=== PATIENT | male | born 1955 | race Caucasian/White ===

== ENCOUNTER 2024-01-31 19:31 | Emergency (ER) | payer OTHER, SELFPAY ==
[2024-01-31 19:38] VITALS: PULSE 85
[2024-01-31 19:41] VITALS: BP 146/80; PULSE 83; TEMP 37.2; O2SAT 98; BMI 29.2
--- NOTE | 2024-01-31 19:42 | XR_ITS ---
The [address] [address] Patient Name: ELIUD ANGEL MRN: [id number] date: 1955 Sex: M Assigned Patient Location: ED.MAIN Current Patient Location: ER Accession/Order Number: [id number] Exam Date: 01/31/2024 20:05 Report Date: 01/31/2024 20:47 At the request of: MARTHA MARKER Procedure: XR chest 1V EXAM: XR chest 1V HISTORY: Chest pain, shortness of breath COMPARISON: 07/12/2020. TECHNIQUE: AP upright chest x-ray FINDINGS: Lungs are clear, no infiltrate or edema. Normal heart size for technique. No pleural effusion or pneumothorax XR/XR chest 1V IMPRESSION: Negative chest x-ray, no acute findings. Electronically authenticated by: YI GOLDEN Date: 01/31/2024 20:47
--- NOTE | 2024-01-31 19:42 | ECG_ITS ---
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
--- NOTE | 2024-01-31 19:43 | ED_ITS ---
HPI - Chest Pain General Chief Complaint: Chest Pain Stated Complaint: chest pain Time Seen by Provider: 01/31/24 19:34 History of Present Illness HPI narrative: This 68-year-old male with a history of chronic kidney disease and diabetes who is a non-smoker presents for evaluation of intermittent episodes of chest discomfort that radiates into his back associated with exertional shortness of breath and feeling like his heart is out of rhythm. He does not have a history of atrial fibrillation. He has not a smoker. He does not have a history of any cardiac disease that he is aware of. He does not currently see a services host. He states his symptoms started over the weekend, 4 to 5 days ago and have been intermittent. He denies any pain at this time but states on the way to the emergency department he had palpitations. He has not had any dizziness syncope or diaphoresis. He has no abdominal pain. His baseline creatinine according to the paperwork that his brought in is 2.75. Related Data Allergies Allergy/AdvReac Type Severity Reaction Status Date / Time IVP dye Allergy Swelling Uncoded 01/31/24 19:45 of Lip/Tongue/Throat Review of Systems ROS Status of ROS 10 or more systems reviewed and unremark able except as noted in history and below Exam Narrative Exam Narrative: Vital signs and Nursing Notes reviewed: General: Awake, alert, oriented, no acute distress, lying comfortably on the stretcher HEENT: Normocephalic atraumatic, mucous membranes are moist and pink, eyes are clear, normal conjunctiva, vision is grossly intact Neck: Supple, no JVD Chest: Lungs are clear to auscultation with good air entry, there is no wheezing rhonchi or rales appreciated no accessory muscle use, patient is speaking in complete sentences-no chest wall tenderness to palpation CVS: Regular rate and rhythm S1-S2, no murmurs rubs or gallops, pulses are brisk and equal bilaterally ABD: Soft, nondistended, nontender, no rebound guarding or rigidity, bowel sounds are normal, no pulsatile masses appreciated Extremities: Moving all extremities, no lower extremity or calf tenderness, 1+ non-pitting edema Skin: Normal in appearance without rash,pallor, petechiae or purpura Neuro: No focal deficits Constitutional Vital Signs, click to edit/add: Last Vital Signs Temp 99 F 01/31/24 19:41 Pulse 83 01/31/24 19:41 Resp 16 01/31/24 19:41 BP 146/80 H 01/31/24 19:41 Pulse Ox 98 01/31/24 19:41 O2 Del Method Room Air 01/31/24 19:41 Course Vital Signs Vital signs: Vital Signs Temperature 99 F 01/31/24 19:41 Pulse Rate 83 01/31/24 19:41 Respiratory Rate 16 01/31/24 19:41 Blood Pressure 146/80 H 01/31/24 19:41 Pulse Oximetry 98 01/31/24 19:41 Oxygen Delivery Method Room Air 01/31/24 19:41 Temperature 99 F 01/31/24 19:41 Pulse Rate 83 01/31/24 19:41 Respiratory Rate 16 01/31/24 19:41 Blood Pressure 146/80 H 01/31/24 19:41 Pulse Oximetry 98 01/31/24 19:41 Oxygen Delivery Method Room Air 01/31/24 19:41 MDM - Chest Pain MDM Narrative Medical decision making narrative: This 68-year-old male with a history of chronic renal insufficiency and type 2 diabetes presents for evaluation of intermittent episodes of chest discomfort that he describes as not chest pain but intermittent discomfort in his chest with intermittent palpitations. He states he has also been having some exertional dyspnea when he is doing the trim work with his lawnmower. He denies any dizziness diaphoresis or syncope. Upon arrival he was not having any chest pain or palpitations but stated he was having some fluttering in his chest prior to arrival. Upon arrival an EKG was ordered that was a sinus rhythm with a right bundle branch block at 85 bpm. I do not have any other EKG for comparison purposes. An IV was placed and routine labs were ordered. He was medicated with 324 mg baby aspirin. He has a normal white count and hemoglobin. Electrolytes are normal. Calcium is mildly low at 8.3. TSH is elevated at 4.428. Troponin and BNP are normal. Chest x-ray was negative for acute findings. Patient was reevaluated and states he is feeling better. He has been on the surveillance specialist without any ectopy or arrhythmia noted. I plan to admit him due to his age and risk factors for heart disease but he declines admission stating that he has an appointment with his family physician next week and wishes to be discharged. He will follow-up with his family physician earlier than that or return to the emergency department for ongoing or worsening symptoms. He will be given copies of his EKG and labs to share with his family physician. He was encouraged to return to the emergency department for recurrent palpitations, chest pain, dizziness diaphoresis or any concerns. The patient's is with him and is in agreement with returning him to the hospital for these issues and is also in agreement with him being discharged home. Medical Records Data Medical records narrative: The [address] [address] XRay Report Signed Patient: ELIUD ANGEL MR#: [id number] : 1955 Acct:[id number] Age/Sex: 68 / M ADM Date: 01/31/24 Loc: ER Attending Dr: Ordering Physician: Leana Sharif Date of Service: 01/31/24 Procedure(s): XR chest 1V Accession Number(s): [id number] cc: Leana Sharif; NINOSKA TORRES ~ The [address] [address] Patient Name: ELIUD ANGEL MRN: [id number] date: 1955 Sex: M Assigned Patient Location: ED.MAIN Current Patient Location: ER Accession/Order Number: [id number] Exam Date: 01/31/2024 20:05 Report Date: 01/31/2024 20:47 At the request of: LEANA SHARIF Procedure: XR chest 1V EXAM: XR chest 1V HISTORY: Chest pain, shortness of breath COMPARISON: 07/12/2020. TECHNIQUE: AP upright chest x-ray FINDINGS: Lungs are clear, no infiltrate or edema. Normal heart size for technique. No pleural effusion or pneumothorax XR/XR chest 1V IMPRESSION: Negative chest x-ray, no acute findings. Electronically authenticated by: YI GOLDEN Date: 01/31/2024 20:47 Lab Data Attestation: I reviewed the patient's lab results. Labs: Lab Results 01/31/24 Range/Units 19:50 WBC 7.9 (4.0-11.0) 10^3/uL RBC 3.56 L (4.70-6.10) 10^6/uL Hgb 11.8 L (14.0-18.0) g/dL Hct 36.1 L (42.0-54.0) % MCV 101.4 H (80.0-94.0) fL MCH 33.1 (25.9-34.0) pg MCHC 32.7 (29.9-35.2) g/dL RDW 12.9 (11.0-15.0) % Plt Count 181 (150-450) 10^3/uL MPV 9.9 (9.5-13.5) fL Neut % (Auto) 45.4 (43.0-75.0) % Lymph % (Auto) 37.6 (20.5-60.0) % [place] % (Auto) 13.6 H (1.7-12.0) % Eos % (Auto) 2.2 (0.9-7.0) % Baso % (Auto) 0.6 (0.2-2.0) % Neut # (Auto) 3.6 (1.4-6.5) 10^3/uL Lymph # (Auto) 3.0 (1.2-3.8) 10^3/uL [place] # (Auto) 1.1 H (0.3-0.8) 10^3/uL Eos # (Auto) 0.2 (0.0-0.7) 10^3/uL Baso # (Auto) 0.1 (0.0-0.1) 10^3/uL Abs Immat Gran (auto) 0.05 H (0.00-0.03) 10^3/uL Imm/Tot Granulo (auto) 0.6 H (0.0-0.5) % Sodium 137 (136-145) mmol/L Potassium 3.9 (3.5-5.1) mmol/L Chloride 105 (98-107) mmol/L Carbon Dioxide 21.9 (21.0-32.0) mmol/L Anion Gap 14.0 BUN 60.0 H (7.0-18.0) mg/dL Creatinine 2.66 H (0.70-1.30) mg/dL Est GFR ( Amer) 29 L (>=60) Est GFR (Non-Af Amer) 24 L (>=60) BUN/Creatinine Ratio 22.6 Glucose 122 H (74-106) mg/dL Calcium 8.3 L (8.5-10.1) mg/dL Total Bilirubin 0.2 (0.2-1.0) mg/dL AST 13 L (15-37) U/L ALT 23 (16-63) U/L Alkaline Phosphatase 64 (46-116) U/L Troponin I High Sens 15.5 (4.0-76.1) pg/mL NT-Pro-B Natriuret Pep 215.0 (<=900.0) pg/mL Total Protein 6.8 (6.4-8.2) g/dL Albumin 3.3 L (3.4-5.0) g/dL Globulin 3.5 g/dL Albumin/Globulin Ratio 0.9 TSH 4.428 H (0.358-3.740) uIU/mL ECG Data Attestation: I personally reviewed and interpreted this ECG as follows: (Sinus rhythm at 85 bpm, right bundle branch block, left axis deviation, nonspecific ST changes, no acute ST segment elevation or T wave inversion) Heart Score History: Slightly/Non-Suspicious ECG: Normal Age: >65 years Risk Factors: 1 or 2 Risk Factors Troponin: <Normal Limit Total Heart Score Recommendations & Risks:: 3 Discharge Plan Discharge Stand Alone Forms: Portal Instructions Chief Complaint: Chest Pain Clinical Impression: Atypical chest pain, Palpitations, Exertional dyspnea, Hypothyroidism Patient Disposition: Home, Self-Care Time of Disposition Decision: 21:11 Condition: Good Print Language: Montenegrin Instructions: Chest Pain (ED), Heart Palpitations (ED), Hypothyroidism (ED) Referrals: Physician,Non-Staff, MD [Physician] - 1 week
[2024-01-31 20:00] LABS: Basophils Absolute Auto 0.1 10^3/uL (0.0-0.1); Basophils Percent Auto 0.6 % (0.2-2.0); Eosinophils Absolute Auto 0.2 10^3/uL (0.0-0.7); Eosinophils Percent Auto 2.2 % (0.9-7.0); Hematocrit 36.1 % (42.0-54.0); Hemoglobin 11.8 g/dL (14.0-18.0); Immature Granulocytes Abs Auto 0.05 10^3/uL (0.00-0.03); Immature Granulocytes Pct Auto 0.6 % (0.0-0.5); Lymphocytes Percent Auto 37.6 % (20.5-60.0); Mean Corpuscular HGB Conc 32.7 g/dL (29.9-35.2); Mean Corpuscular Hemoglobin 33.1 pg (25.9-34.0); Mean Corpuscular Volume 101.4 fL (80.0-94.0); Mean Platelet Volume 9.9 fL (9.5-13.5); Monocytes Absolute Auto 1.1 10^3/uL (0.3-0.8); Monocytes Percent Auto 13.6 % (1.7-12.0); Neutrophils Absolute Auto 3.6 10^3/uL (1.4-6.5); Neutrophils Percent Auto 45.4 % (43.0-75.0); Platelet Count 181 10^3/uL (150-450); Red Blood Count 3.56 10^6/uL (4.70-6.10); Red Cell Distribution Width 12.9 % (11.0-15.0); White Blood Count 7.9 10^3/uL (4.0-11.0)
[2024-01-31] MEDS: ASPIRIN 81 MG TAB.CHEW 324 MG PO (20:20)
[2024-01-31 20:21] LABS: Alanine Aminotransferase 23 U/L (16-63); Albumin Globulin Ratio 0.9; Albumin Level 3.3 g/dL (3.4-5.0); Alkaline Phosphatase 64 U/L (46-116); Aspartate Amino Transferase 13 U/L (15-37); BUN Creatinine Ratio 22.6; Bilirubin Total 0.2 mg/dL (0.2-1.0); Calcium 8.3 mg/dL (8.5-10.1); Carbon Dioxide 21.9 mmol/L (21.0-32.0); Chloride 105 mmol/L (98-107); Estimated GFR (African America 29 (>=60); Estimated GFR (Non-African Ame 24 (>=60); Globulin 3.5 g/dL; Glucose 122 mg/dL (74-106); Potassium 3.9 mmol/L (3.5-5.1); Sodium 137 mmol/L (136-145); Total Protein 6.8 g/dL (6.4-8.2); Troponin I High Sensitivity 15.5 pg/mL (4.0-76.1)
[2024-01-31 20:43] LABS: Thyroid Stimulating Hormone 4.428 uIU/mL (0.358-3.740)
[2024-01-31 21:27] VITALS: BP 120/72; PULSE 83; O2SAT 98
== END 2024-01-31 21:29 | disposition home or self-care (01) ==
PROVIDERS: Emergency Provider Emergency Medicine; PCP Internal Medicine
DX: R07.89 Other chest pain (principal); R00.2 Palpitations; R06.09 Other forms of dyspnea; E03.9 Hypothyroidism, unspecified; E11.22 Type 2 diabetes mellitus with diabetic chronic kidney disease; N18.9 Chronic kidney disease, unspecified
CPT/HCPCS: 36415; 71045; 80053; 83880; 84443; 84484; 85025; 93005; 99285